=== PATIENT | female | born 1995 ===

== ENCOUNTER 2023-05-24 02:00 | Outpatient (CLI) | payer OTHER | END 2023-05-24 02:10 | disposition home or self-care (01) | LOC: PPH VACUNA 02:00 | PROVIDERS: ATTEND Emergency Medicine Pediatric Emergency Medicine | DX: Z23 Encounter for immunization (principal) | CPT/HCPCS: 90686; G0008 ==

== ENCOUNTER 2023-07-04 15:44 | Emergency (ER) | payer OTHER ==
[~2023-07-04] VITALS: Ht 160 cm; Wt 83.9 kg
[2023-07-04] MEDS ORDERED: VITAMIN D310 MC5 PO (16:58)
[2023-07-04 17:56] LABS: HEMATOCRIT 42.4 % (36.0-45.00); HEMOGLOBIN 14.8 g/dL (12.0-15.00); MEAN CELL VOLUME 85.4 fL (80.00-100.00); MEAN CORPUSCULAR HEMOGLOBIN 29.9 pg (27.00-32.0); PLATELET COUNT 333 K/uL (150-450); RED BLOOD COUNT 4.96 M/uL (4.00-6.00); RED CELL DISTRIBUTION WIDTH 13.3 % (11.5-14.5)
== END 2023-07-04 20:50 | disposition home or self-care (01) ==
LOC: ER 15:44
PROVIDERS: General Practice
DX: J06.9 Acute upper respiratory infection, unspecified (principal); Z20.822 Contact with and (suspected) exposure to COVID-19

== ENCOUNTER → 2024-05-15 04:00 | Outpatient (CLI) | payer OTHER ==
[~2024-05-15 04:00] MED LIST: VITAMIN D310 MC5 PO
== END | disposition home or self-care (01) ==
LOC: PPH VACUNA 04:00
PROVIDERS: ATTEND Emergency Medicine Pediatric Emergency Medicine
DX: Z23 Encounter for immunization (principal)